=== PATIENT | female | born 1945 | race Caucasian/White ===

== ENCOUNTER 2019-11-16 15:42 | Emergency (ER) | payer MEDICARE, OTHER ==
[~2019-11-16] VITALS: Ht 157.5 cm; Wt 73.2 kg
[2019-11-16 15:52] VITALS: BP 142/77
[2019-11-16] MEDS ORDERED: TETanus/Pertussis (Acell)/Diphther VAC/PF (Tdap-Adult) 0.5ml syringe IMVAC ONE (16:20)
== END 2019-11-16 16:48 | disposition home or self-care (01) ==
LOC: ER 15:42
DX: S62.521A Displaced fracture of distal phalanx of right thumb, initial encounter for closed fracture (principal); R04.0 Epistaxis; I10 Essential (primary) hypertension; G89.29 Other chronic pain; Z98.890 Other specified postprocedural states; Z88.5 Allergy status to narcotic agent; W01.0XXA Fall on same level from slipping, tripping and stumbling without subsequent striking against object, initial encounter; Y93.89 Activity, other specified; Y92.89 Other specified places as the place of occurrence of the external cause; Y99.8 Other external cause status
CPT/HCPCS: 29125; 73140; 99284

== ENCOUNTER 2023-02-07 16:33 | Emergency (ER) | payer MEDICARE, MEDICAID ==
[~2023-02-07] VITALS: Ht 157.5 cm; Wt 74.2 kg
[2023-02-07 16:35] VITALS: BP 151/57
== END 2023-02-07 19:19 | disposition home or self-care (01) ==
LOC: ER 16:34
DX: R60.0 Localized edema (principal); G89.29 Other chronic pain; M54.9 Dorsalgia, unspecified; I10 Essential (primary) hypertension; Z88.5 Allergy status to narcotic agent; Z88.8 Allergy status to other drugs, medicaments and biological substances; Z79.899 Other long term (current) drug therapy
CPT/HCPCS: 93971; 99284

== ENCOUNTER 2025-07-19 17:59 | Emergency (ER) | payer MEDICARE, MEDICAID ==
[~2025-07-19] VITALS: Ht 152.4 cm; Wt 70.9 kg
[2025-07-19 18:07] VITALS: TEMP 97.8
--- NOTE | 2025-07-19 18:19 | Physician Documentation ---
History of Present Illness ~ Chief Complaint: Mechanical Fall Stated Complaint: FALL/ HIT HEAD Time Seen by MD: 18:45 Primary Medical Doctor: Pauline GILBERT Patient is an 80-year-old female that presents to the emergency department for evaluation of pain secondary to a fall 2 days ago. Patient denies any loss of consciousness during that fallen reports that she does not take any blood thinners. Patient reports that she has fallen multiple times recently due to several surgeries in her right leg and progressive weakness in that leg. Patient denies any point tenderness of the cervical spine thoracic or lumbar spine at this time. Patient reports tenderness of the right side of her neck down into her shoulder. History as above. Positive nausea. She states her fall was instigated by tripping over her dog. Denies any chest pain or palpitations Tetanus within 5 Years?: No Medication Reconciliation Allergies: Coded Allergies: codeine (Verified Allergy, Unknown, 07/19/25) hydromorphone HCl (Verified Allergy, Unknown, 07/19/25) morphine (Verified Allergy, Unknown, 07/19/25) oxycodone (Verified Allergy, Unknown, 07/19/25) Past Medical History Past Medical History: Hypertension, Chronic Back Pain, Extremity Fracture Past Surgical History: orthopedic surgeries, other Other Past Family History: Noncontributory Alcohol Use: None Drug Use: none Lives with: Spouse Lives In: Home Occupation: retired Review of Systems ROS All review of systems negative except as per HPI Physical Exam Vital Signs: Temperature: 97.8, Source: Temporal, Heart Rate: 73, Respiratory Rate: 18, BP: 129/79, Pulse Oximetry: 99, Weight: 70.910 Physical Exam General: Patient is awake, alert, oriented x4 in no acute distress and well appearing.~ Head: Normocephalic and atraumatic. Eyes: Conjunctival normal. EOMI. PERRL. ENT: Mucous membranes moist. No trejo signs or raccoon eyes Neck: Supple, trachea is midline. Tenderness to palpation to right-sided neck. Chest: Clear to auscultation bilaterally without rales, rhonchi, or wheezes. There is no accessory muscle use or retractions. Cardiac: RRR without murmurs, gallops, or rubs. Progress Results/Orders Results/Orders Completed Orders - RAHEEL KITCHEN MD Hydrocodone/Apap 10/325 ([place] 10/325mg (07/19/25 19:05) Vital Signs 07/19/25 07/19/25 18:07 19:06 Temp 97.8 Pulse 73 Resp 18 16 B/P (MAP) 129/79 Pulse Ox 99 Medical Decision Making Additional info obtained from: old records Findings Patient presents to the emergency room with fall as per HPI. Differentials include but are not limited to intracranial bleed, concussion, cervical fracture therefore emergent CT scans ordered. CT scan is reassuring. Symptoms consistent with concussion. Differential Dx:Considerations: Include: Closed head injury, Cardiac injury, Fracture(s), Intraabdominal injury, Pneumothorax, Cerebral contusion, Pulmonary contusion, Spine injury, Tracheal injury, Urological injury, Vascular injury, Abrasion(s), Contusion(s), Foreign body(s), Hematoma(s), Laceration(s), Encephalopathy, Other Departure Disposition: 01 HOME / SELF CARE / HOMELESS Impression: Primary Impression: Concussion Condition: Stable Discharge Instructions: Concussion, Adult Referrals: NO PRIMARY CARE PROVIDER (PCP) Signature Scribe Signature: No scribe Attestation: The note accurately reflects work and decisions made by me.Raheel Kitchen MD 07/19/25 19:13 BARRY WESLEY Jul 19, 2025 18:19 RAHEEL KITCHEN MD Jul 19, 2025 18:51
--- NOTE | 2025-07-19 18:56 | RADIOLOGY REPORT ---
Procedure: CT CT HEAD [facility] Study Date and Requested Time: 07/19/2025 06:20 PM History: MECH FALL WITH HEAD STRIKE Comparison: None Dose: CTDI: 54.24 mGy DLP: 1023.49 mGycm Technique: Multiplanar images obtained through the brain without intravenous contrast. Findings: Kodr-dx-efnsdakg diffuse brain Atrophy. Mild chronic small vessel ischemic changes. No hemorrhages, masses, mass effect, midline shift, herniation or cytotoxic edema following a large vascular territory. No intra-axial or extra-axial fluid collections. No evidence of hydrocephalus. The basal cisterns are patent. The pituitary gland, sella and parasellar regions are unremarkable. The cerebellar tonsils are in normal position. The cerebellum is unremarkable. Bilateral lens replacement. Otherwise, orbits and globes are unremarkable. The paranasal sinuses and mastoids are clear. There are no worrisome calvarial lesions. Impression: No evidence of acute intracranial abnormality.
--- NOTE | 2025-07-19 19:05 | RADIOLOGY REPORT ---
EXAM: CT CT CERVICAL SPINE HISTORY: MECH FALL WITH HEAD STRIKE COMPARISON: CT CT HEAD on CTDLvol 22.93:mGy, DLP 484.41 mGy*cm. TECHNIQUE: Multiple axial CT images of the spine were obtained using bone algorithm. Axial and coronal reformatting was done. Bone and soft tissue windows were reviewed. FINDINGS: No evidence of definite acute fracture, spinal dislocation, or significant appearing acute subluxation is seen. Moderate degenerative changes throughout the cervical spine. IMPRESSION: No acute cervical spine abnormality.
[2025-07-19] MEDS: HYDROcodone/acetaminophen 10/325mg tab PO ONE (19:15)
[2025-07-19 19:16] VITALS: BP 145/71; PULSE 65; RESP 16; O2SAT 99
== END 2025-07-19 19:22 | disposition home or self-care (01) ==
LOC: ER 17:59
DX: S06.0X0A Concussion without loss of consciousness, initial encounter (principal); R53.1 Weakness; R11.0 Nausea; I10 Essential (primary) hypertension; G89.29 Other chronic pain; Z88.5 Allergy status to narcotic agent; W01.0XXA Fall on same level from slipping, tripping and stumbling without subsequent striking against object, initial encounter; Y93.89 Activity, other specified; Y92.89 Other specified places as the place of occurrence of the external cause; Y99.8 Other external cause status
CPT/HCPCS: 70450; 72125; 99284